=== PATIENT | female | born 1945 | race Caucasian/White ===

== ENCOUNTER 2017-10-05 09:12 | Inpatient (IN) | payer OTHER, MEDICARE ==
[~2017-10-05] VITALS: Ht 160 cm; Wt 99.8 kg
--- NOTE | 2017-10-05 09:36 | ED GI/GU/ABDOMINAL COMPLAINT ---
History of Present Illness General Chief Complaint: Abdominal Pain/Flank Pain Stated Complaint: LOWER ABD PAIN Source: patient Exam Limitations: no limitations Allergies Coded Allergies: Penicillins (ASTHMA 10/05/17) Reconcile Medications Albuterol Sulfate (Proair Hfa) 90 MCG HFA.AER.AD 2 PUF INH AD PRN RESP. ( Reported) Aspirin (Ecotrin*) 81 MG TABLET.DR 1 TAB PO DAILY HEART/BLOOD (Reported) Atorvastatin Calcium 40 MG TABLET 1 TAB PO DAILY CHOLESTEROL (Reported) Cinnamon Bark (Cinnamon) (Unknown Strength) CAPSULE (Unknown Dose) PO DAILY SUPPLEMENT (Reported) Fluticasone/Vilanterol (Breo Ellipta 200-25 Mcg INH) 200 MCG-25 MCG/DOSE BLST.W.DEV 1 PUFF INH DAILY RESP (Reported) Glipizide (Glucotrol XL) 10 MG TAB.ER.24 1 TAB PO DAILY DM (Reported) Losartan (Cozaar) 100 MG TABLET 1 TAB PO DAILY HEART/BP (Reported) Metformin HCl 500 MG TABLET 4 TAB PO DAILY DM (Reported) Montelukast Sodium (Singulair) 10 MG TABLET 1 TAB PO DAILY ALLERGIES/RESP. ( Reported) Multivitamin (Daily Value) 1 EACH TABLET 1 TAB PO DAILY SUPPLEMENT (Reported) Huson-3/Dha/Epa/Fish Oil (Fish Oil 1,000 MG Softgel) (Unknown Strength) CAPSULE (Unknown Dose) PO DAILY SUPPLEMENT (Reported) Pioglitazone HCl (Actos) 30 MG TABLET 1 TAB PO DAILY DM (Reported) Triage Note: PT BIBA C/O LOWER ABD PAIN 8/10 WITH FEVER AND CHILLS SINCE SATURDAY. PT ALSO C/O FREQUESNT URINATION.. PT NAUSEOUS AND VOMITTED IN ROOM ON ARRIVAL. PT CALLED 911 LAST NIGHT BECAUSE SHE WAS LONELY. Triage Nurses Notes Reviewed? yes ? N Is pt currently ? No Onset: Gradual Duration: constant Timing: recent history Quality/Severity: moderate Severity Numbers: 5 Location: suprapubic Radiation: no radiation HPI: Patient is a 72-year-old female with past medical history of ASTHMA, type 2 diabetes, hyperlipidemia, hypertension, diverticulitis with perforation and bowel resection who presents to emergency room with concerns of a four-day history of white productive cough generalized weakness and fatigue increased frequency of urination dysuria suprapubic abdominal pain and intermittent episodes of vomiting, last bowel movement was within last 24 hours no blood no melena no diarrhea patient is able tolerate by mouth prior to arrival Denies any similar sick contacts Denies any chest pain arm pain jaw pain back pain leg swelling Patient was recently placed with clarithromycin and prednisone approximate 3 weeks ago by her primary care doctor for concerns of upper respiratory infection (Kahlil Jason) Vital Signs & Intake/Output Vital Signs & Intake/Output Vital Signs Date Time Temp Pulse Resp B/P B/P Pulse O2 O2 Flow FiO2 Mean Ox Delivery Rate 10/05 1257 99.6 85 18 140/60 95 Room Air 10/05 1154 100.3 84 18 136/64 95 Room Air 10/05 1057 99.9 101 18 146/68 95 Room Air 10/05 1027 102.2 10/05 0950 102.9 10/05 0932 97 10/05 0921 102.9 114 18 181/79 (Kera CONWAY,Domenic Prescott) Past History Travel History Traveled to [place] past 21 day No Medical History Any Pertinent Medical History? see below for history Cardiovascular: hypertension Respiratory: asthma Endocrine: diabetes Surgical History Surgical History: appendectomy, hysterectomy, BOWEL RESECTION Psychosocial History What is your primary language Tuval[place] Tobacco Use: Never used Family History Hx Contributory? No (Kahlil Jason) Review of Systems Review of Systems Constitutional: Reports: see HPI, chills, malaise. EENTM: Reports: no symptoms. Respiratory: Reports: see HPI, cough. Cardiovascular: Reports: no symptoms. GI: Reports: see HPI, abdominal pain. Genitourinary: Reports: see HPI, frequency. Musculoskeletal: Reports: no symptoms. Skin: Reports: no symptoms. Neurological/Psychological: Reports: no symptoms. Hematologic/Endocrine: Reports: no symptoms. Immunologic/Allergic: Reports: no symptoms. All Other Systems: Reviewed and Negative (Kahlil Jason) Physical Exam Physical Exam General Appearance: lethargic, mild distress Head: atraumatic Eyes: Bilateral: normal appearance, PERRL, EOMI. Ears, Nose, Throat, Mouth: hearing grossly normal, moist mucous membrane Neck: normal inspection Respiratory: no respiratory distress, quiet respiration, decreased breath sounds Cardiovascular: tachycardia Peripheral Pulses: 2+ radial (R) Gastrointestinal: normal bowel sounds, soft, SUPRAPUBIC ABDOMINAL PAIN NO REBOUND TENDERNESS Extremities: normal range of motion Neurologic/Psych: no motor/sensory deficits, awake Skin: intact, normal color, warm/dry Core Measures ACS in differential dx? No Sepsis Present: Yes Sepsis Focused Exam Completed? Yes (Kahlil Jason) ED Sepsis Exam Date of Focused Sepsis Exam: 10/05/17 Time of Focused Sepsis Exam: 1108 Sepsis Cardiac Exam: Tachycardia Sepsis Resp Exam: CTA Sepsis Cap Refill Exam: <2 Sec Sepsis Peripheral Pulse Exam: Normal Sepsis Peripheral Pulse Location: Radial Sepsis Skin Color Exam: Normal for Ethnicity Skin Temp/Moisture Exam: Warm/Dry (Kahlil Jason) Progress Differential Diagnosis: AAA, AMI, appendicitis, biliary colic, bowel obstruction , colon cancer, cholecystitis, diverticulitis, endometritis, esophageal varices, gastritis, hepatitis, hernia, hemorrhoids, ischemic bowel, inflamm bowel dis, kidney stone, ovarian cyst, ovarian torsion, pancreatitis, PID/cervicitis, peptic ulcer, PUD/GERD, perforated viscous, SBO, UTI/pyelo Diagnostic Imaging: Viewed by Me: CT Scan. Radiology Impression: see comments Initial ED EKG: normal p-waves, normal QRS complex, 89 BPM,NSR Comments: PATIENT: REEMA GAONA PRESENT AGE: 72 PATIENT ACCOUNT NO: [id number] : 44 LOCATION: [facility] ORDERING PHYSICIAN: Kahlil PRICE SERVICE DATE: 10/05/17 EXAM TYPE: CAT - CT ABD & PELVIS W/O IV CONTRAS; CT CHEST WO IV CONTRAST EXAMINATION: CT CHEST, ABDOMEN, AND PELVIS WITHOUT CONTRAST CLINICAL INFORMATION: Sepsis. Cough. Abdominal pain. COMPARISON: None TECHNIQUE: Multidetector volumetric imaging was performed from the lung apices through the pubic symphysis. Sagittal and coronal reformatted images were obtained on the technologist's workstation. DLP: 957.12 mGy-cm FINDINGS: LUNGS EXAMINATION: CT CHEST, ABDOMEN AND PELVIS WITH CONTRAST CLINICAL INFORMATION: Sepsis, cough, abdominal pain. COMPARISON: No pertinent prior studies are available for comparison. TECHNIQUE: Multidetector volumetric imaging was performed from the thoracic inlet through the pubic symphysis. Sagittal and coronal reformatted images were obtained on the technologist workstation. DLP: 957.12 mGy-cm. FINDINGS: CHEST: Lungs: There are multiple sub-3 mm nodular densities present some of which are calcified. There is a 5 mm noncalcified lesion seen within the right lower lobe on image 266 of 976. There is a 5 mm noncalcified nodule seen within the left lower lobe on image 314 of 976. There are regions of discoid disease seen within the right middle lobe and lingula adjacent to the fissures with some degree of mild bronchiectasis involving the right middle lobe region. These have the appearance of atelectatic change however small focus of pneumonitis within this is not excluded. No confluent pneumonitis is seen. The central airways are unremarkable. Mediastinum: No thoracic aortic aneurysm. There is mild calcified plaque within the aortic arch. There is some calcification of the aortic valve as well as coronary arteries. Heart normal size. No pericardial effusion. No mediastinal or hilar lymphadenopathy. There is a small hiatal hernia. Pleura: There is no significant effusion. No pleural mass or thickening. Chest Wall/Axilla: Unremarkable. No lymphadenopathy appreciated. ABDOMEN/PELVIS: Liver, Gallbladder, Biliary Tree: There is a Amita's lobe present measuring 24 cm in vertical dimension. There is a 1 cm low-density lesion seen within segment 6 of the liver. No intrahepatic bile duct dilatation. The gallbladder is unremarkable with no evidence of radiopaque gallstones, gallbladder wall thickening, or pericholecystic inflammatory changes. Pancreas: Unremarkable. No mass or peripancreatic inflammatory change. Spleen: Unremarkable. Adrenal Glands: Unremarkable. Kidneys and Ureters: Right kidney: No focal mass. There is a 2 mm nonobstructing mid to lower pole calculus. There is question of some fullness of the upper collecting system versus parapelvic cyst. Right ureter unremarkable. Left kidney: There is fullness of the upper collecting system with the appearance of UPJ obstruction. The left ureter appears unremarkable. No calculi or focal mass appreciated. Question parapelvic cysts. There is perinephric stranding present. Bladder: Unremarkable. Gastrointestinal Tract: There is a small hiatal hernia. No dilated loops of large or small bowel are evident. There is diverticulosis of the colon without evidence of acute diverticulitis. The appendix is not visualized. No abnormal fluid collection appreciated. Abdominal Wall: No hernia is demonstrated. Lymph Nodes: No measurable lymphadenopathy. Vascular: Some calcified plaque is seen within the infrarenal abdominal aorta. No abdominal aortic aneurysm. Pelvic Viscera: No abnormal pelvic mass or inflammatory change is seen. Osseous Structures: No destructive bony lesions identified. Degenerative disc disease is seen at the L4-L5 and L5-S1 levels. Degenerative marginal spurring seen multiple levels in the thoracic spine. IMPRESSION: Old granulomatous disease within the chest. 2, 5 mm noncalcified lung lesions . Regions of atelectasis right middle lobe and lingula as described above. Bilateral fullness of renal upper collecting systems without evidence of radiopaque calculi. There may be some parapelvic cyst present. There is left perinephric inflammatory change change seen and question UPJ type obstruction. Ureters appear unremarkable bilaterally. Administration of IV contrast with delayed imaging would help in evaluating for palpable pelvic cyst versus hydronephrosis if there is suspicion of obstructive uropathy. No abscess or abnormal fluid collections are identified. According to the UPDATED 2017 Fleischner Society recommendations, the advised follow-up imaging for solid nodules < 6 mm is: LOW RISK PATIENT: No routine follow-up. HIGH RISK PATIENT: Optional CT at 12 months. (Daria PRICE,Kahlil) Plan of Care: Orders Procedure Date/time Status Add-on Test (ER Only) 10/05 1318 Active LACTIC ACID 10/05 1235 Complete LOWER RESPIRATORY CULTURE 10/05 1041 Active Add-on Test (ER Only) 10/05 1033 Active RAPID VIRAL INFLUENZA A 10/05 0957 Complete CULTURE,URINE 10/05 0941 Active BLOOD CULTURE 10/05 0941 Active Add-on Test (ER Only) 10/05 0940 Active EKG 10/05 0940 Active ACETONE 10/05 0939 Complete URINALYSIS 10/05 0935 Complete TROPONIN LEVEL 10/05 0935 Complete LACTIC ACID 10/05 0935 Complete COMPREHENSIVE METABOLIC PANEL 10/05 0935 Complete CBC WITHOUT DIFFERENTIAL 10/05 0935 Complete Laboratory Tests 10/05/17 1250: Lactic Acid 0.8 10/05/17 1130: Urinalysis LIGHT H, Urine Color YEL, Urine Clarity HAZY H, Urine pH 6.0, Ur Specific [place] 1.020, Urine Protein 100 H, Urine Ketones NEG, Urine Nitrite NEG, Urine Bilirubin NEG, Urine Urobilinogen 0.2, Ur Leukocyte Esterase NEG, Ur Microscopic SEDIMENT EXAMINED, Urine RBC 1-3, Urine WBC 50-75 H, Ur Epithelial Cells MOD H, Urine Bacteria MANY H, Urine Hemoglobin SMALL H, Urine Glucose NEG 10/05/17 0939: Anion Gap 14, Estimated GFR 40 L, BUN/Creatinine Ratio 20.0, Glucose 239 H, Lactic Acid 2.0, Calcium 9.5, Total Bilirubin 0.6, AST 28, ALT 57 H, Alkaline Phosphatase 84, Troponin I 0.02, Total Protein 6.6, Albumin 3.8, Globulin 2.8, Albumin/Globulin Ratio 1.4, CBC w Diff MAN DIFF ORDERED, RBC 3.69 L, MCV 85.6, MCH 28.9, RDW 15.0 H, MPV 8.3, Gran % 84.6 H, Lymphocytes % 5.2 L, Monocytes % 9.8 H, Eosinophils % 0.4, Basophils % 0, Absolute Granulocytes 8.5 H, Segmented Neutrophils 76 H, Band Neutrophils 12 H, Absolute Lymphocytes 0.5 L , Lymphocytes 5 L, Monocytes 7, Absolute Monocytes 1.0 H, Absolute Eosinophils 0, Absolute Basophils 0, Platelet Estimate VERIFIED BY SMEAR, Polychromasia 1+, Anisocytosis 1+, PUBS MCHC 33.8, Acetone Level NEGATIVE Microbiology 10/05 1130 URINE ROUT: Urine Culture - RECD 10/05 1041 LOWER RESP: Respiratory Culture - ORD 10/05 1041 LOWER RESP: Gram Stain - ORD 10/05 1008 BLOOD: Blood Culture - RECD 10/05 1000 BLOOD: Blood Culture - RECD 10/05 0957 NASOPHARYN: Influenza Virus A & B Rapid Smear - COMP Patient on initial examination was noted to be lethargic and febrile IV fluids were administered CT scan was resulted and which due to previous or present illness and exam findings or suspicion of sepsis most likely urine origin IV Rocephin was administered Discussed admission with patient and family members were aware and will agree Discussed admission with Dr. Cote who also was aware No concerns at this time of severe sepsis (Kahlil Jason) (Kera CONWAY,Domenic Prescott) Departure Departure Disposition: STILL A PATIENT Condition: Guarded Clinical Impression Primary Impression: Sepsis Secondary Impressions: Fever, UTI (urinary tract infection) Departure Forms: Customer Survey General Discharge Information Admission Note Spoke With: Phoenix Ojeda MD Documentation of Exam: Documentation of any treatments & extenuating circumstances including Concerns Regarding Discharge (functional status, medication knowledge or non-compliance, living conditions, etc.) that warrant an admission rather than observation: [ Discussed admission with Dr. Ojeda who agrees with admission for concerns of urosepsis in which patient requires IV antibiotics blood culture urine culture currently pending IV fluid resuscitation and repeat labs,] (Kahlil Jason) PA/HUMAN RESOURCES CONSULTANT Co-Sign Statement Statement: ED Attending supervision documentation- [X] I saw and evaluated the patient. I have also reviewed all the pertinent lab results and diagnostic results. I agree with the findings and the plan of care as documented in the PA's/HUMAN RESOURCES CONSULTANT's documentation. Patient presents for evaluation of chills fever and abdominal pain. Physical examination reveals a awake and alert patient with no respiratory distress. Abdomen is nondistended. [] I have reviewed the ED Record and agree with the PA's/HUMAN RESOURCES CONSULTANT's documentation. [] Additions or exceptions (if any) to the PAs/HUMAN RESOURCES CONSULTANT's note and plan are summarized below: [] (Kera CONWAY,Domenic Prescott) Critical Care Note Critical Care Note Critical Care Time: 30-74 min (Kahlil Jason)
[2017-10-05 09:57] LABS: ABSOLUTE BASOPHIL COUNT 0 /CUMM (0.0-0.2); ABSOLUTE EOSINOPHIL COUNT 0 /CUMM (0.0-0.7); ABSOLUTE GRANULOCYTE CT 8.5 /CUMM (1.4-6.5); ABSOLUTE LYMPH COUNT 0.5 /CUMM (1.2-3.4); BASOPHIL % 0 % (0.0-2.0); EOSINOPHIL % 0.4 % (0-5); GRANULOCYTE % 84.6 % (42.2-75.2); HEMATOCRIT 31.6 % (37-47); MEAN CORPUSCULAR HGB 28.9 PG (27.0-31.0); MEAN CORPUSCULAR HGB CONC 33.8 G/DL (33.0-37.0); MEAN CORPUSCULAR VOLUME 85.6 FL (81.0-99.0); MEAN PLATELET VOLUME 8.3 FL (7.4-10.4); PLATELET COUNT 227 /CUMM (130-400); RED BLOOD CELL CT 3.69 /CUMM (4.20-5.40)
--- NOTE | 2017-10-05 12:27 | CT SCAN REPORT ---
EXAMINATION: CT CHEST, ABDOMEN, AND PELVIS WITHOUT CONTRAST CLINICAL INFORMATION: Sepsis. Cough. Abdominal pain. COMPARISON: None TECHNIQUE: Multidetector volumetric imaging was performed from the lung apices through the pubic symphysis. Sagittal and coronal reformatted images were obtained on the technologist's workstation. DLP: 957.12 mGy-cm FINDINGS: LUNGS EXAMINATION: CT CHEST, ABDOMEN AND PELVIS WITH CONTRAST CLINICAL INFORMATION: Sepsis, cough, abdominal pain. COMPARISON: No pertinent prior studies are available for comparison. TECHNIQUE: Multidetector volumetric imaging was performed from the thoracic inlet through the pubic symphysis. Sagittal and coronal reformatted images were obtained on the technologist workstation. DLP: 957.12 mGy-cm. FINDINGS: CHEST: Lungs: There are multiple sub-3 mm nodular densities present some of which are calcified. There is a 5 mm noncalcified lesion seen within the right lower lobe on image 266 of 976. There is a 5 mm noncalcified nodule seen within the left lower lobe on image 314 of 976. There are regions of discoid disease seen within the right middle lobe and lingula adjacent to the fissures with some degree of mild bronchiectasis involving the right middle lobe region. These have the appearance of atelectatic change however small focus of pneumonitis within this is not excluded. No confluent pneumonitis is seen. The central airways are unremarkable. Mediastinum: No thoracic aortic aneurysm. There is mild calcified plaque within the aortic arch. There is some calcification of the aortic valve as well as coronary arteries. Heart normal size. No pericardial effusion. No mediastinal or hilar lymphadenopathy. There is a small hiatal hernia. Pleura: There is no significant effusion. No pleural mass or thickening. Chest Wall/Axilla: Unremarkable. No lymphadenopathy appreciated. ABDOMEN/PELVIS: Liver, Gallbladder, Biliary Tree: There is a Amita's lobe present measuring 24 cm in vertical dimension. There is a 1 cm low-density lesion seen within segment 6 of the liver. No intrahepatic bile duct dilatation. The gallbladder is unremarkable with no evidence of radiopaque gallstones, gallbladder wall thickening, or pericholecystic inflammatory changes. Pancreas: Unremarkable. No mass or peripancreatic inflammatory change. Spleen: Unremarkable. Adrenal Glands: Unremarkable. Kidneys and Ureters: Right kidney: No focal mass. There is a 2 mm nonobstructing mid to lower pole calculus. There is question of some fullness of the upper collecting system versus parapelvic cyst. Right ureter unremarkable. Left kidney: There is fullness of the upper collecting system with the appearance of UPJ obstruction. The left ureter appears unremarkable. No calculi or focal mass appreciated. Question parapelvic cysts. There is perinephric stranding present. Bladder: Unremarkable. Gastrointestinal Tract: There is a small hiatal hernia. No dilated loops of large or small bowel are evident. There is diverticulosis of the colon without evidence of acute diverticulitis. The appendix is not visualized. No abnormal fluid collection appreciated. Abdominal Wall: No hernia is demonstrated. Lymph Nodes: No measurable lymphadenopathy. Vascular: Some calcified plaque is seen within the infrarenal abdominal aorta. No abdominal aortic aneurysm. Pelvic Viscera: No abnormal pelvic mass or inflammatory change is seen. Osseous Structures: No destructive bony lesions identified. Degenerative disc disease is seen at the L4-L5 and L5-S1 levels. Degenerative marginal spurring seen multiple levels in the thoracic spine. IMPRESSION: Old granulomatous disease within the chest. 2, 5 mm noncalcified lung lesions . Regions of atelectasis right middle lobe and lingula as described above. Bilateral fullness of renal upper collecting systems without evidence of radiopaque calculi. There may be some parapelvic cyst present. There is left perinephric inflammatory change change seen and question UPJ type obstruction. Ureters appear unremarkable bilaterally. Administration of IV contrast with delayed imaging would help in evaluating for palpable pelvic cyst versus hydronephrosis if there is suspicion of obstructive uropathy. No abscess or abnormal fluid collections are identified. According to the UPDATED 2017 Fleischner Society recommendations, the advised follow-up imaging for solid nodules < 6 mm is: LOW RISK PATIENT: No routine follow-up. HIGH RISK PATIENT: Optional CT at 12 months.
[2017-10-05] MEDS ORDERED: ACTOS30 M1 PO (13:12)
[2017-10-05] MEDS ORDERED: GLUCOTROL XL10 MG PO (13:13)
[2017-10-05] MEDS ORDERED: COZAAR100 M1 PO (13:13)
[2017-10-05] MEDS ORDERED: ATORVASTATIN CA40 M1 PO (13:13)
[2017-10-05] MEDS ORDERED: BREO ELLIPTA 21 EACH INH (13:13)
[2017-10-05] MEDS ORDERED: METFORMIN HCL500 M3 PO (13:13)
[2017-10-05] MEDS ORDERED: ASPIRIN EC81 M1 PO (13:14)
[2017-10-05] MEDS ORDERED: SINGULAIR10 M1 PO (13:14)
[2017-10-05] MEDS ORDERED: PROAIR HFA8.5 GM INH (13:14)
[2017-10-05] MEDS ORDERED: FISH OIL 1,0001 EAC2 PO (13:15)
[2017-10-05] MEDS ORDERED: DAILY VALUE1 EACH PO (13:15)
[2017-10-05] MEDS ORDERED: CINNAMON500 M1 PO (13:16)
--- NOTE | 2017-10-05 14:17 | History & Physical ---
Jonathan Leal 10/05/17 1417: General Information and HPI MD Statement: I have seen and personally examined REEMA BARRERA and documented this H&P. The patient is a 72 year old F who presented with a patient stated chief complaint of [low abdominal pain, fever, urinary frequency]. Source of Information: patient, old records Exam Limitations: no limitations History of Present Illness: Mrs Barrera is a 72-year-old community dwelling lady with a PMH of DM, HTN, asthma followed by Dr. Kim (PCP) and Dr. Piedra (mental health program manager) who presented with complaints of lower abdominal pain, fevers, chills and urinary frequency. Symptoms started on the evening of 10/02/2017 with sudden onset of chills, 2 episodes of nausea and nonbloody vomitus. Over the next 2-3 days she experienced urinary frequency/urgency, decrease in appetite, intermittent episodes of dry heaving, mild chills, TmAX 101.7, body aches and sweating prompting her to call the EMS to coming for further evaluation. Recent URI symptoms on September 08 for which she was treated with prednisone taper, Flonase and clarithromycin. She denies any sick contacts or recent travel during this time Allergies/Medications Allergies: Coded Allergies: Penicillins (ASTHMA 10/05/17) Home Med list Albuterol Sulfate (Proair Hfa) 90 MCG HFA.AER.AD 2 PUF INH AD PRN RESP. ( Reported) Aspirin (Ecotrin*) 81 MG TABLET.DR 1 TAB PO DAILY HEART/BLOOD (Reported) Atorvastatin Calcium 40 MG TABLET 1 TAB PO DAILY CHOLESTEROL (Reported) Cinnamon Bark (Cinnamon) (Unknown Strength) CAPSULE (Unknown Dose) PO DAILY SUPPLEMENT (Reported) Fluticasone/Vilanterol (Breo Ellipta 200-25 Mcg INH) 200 MCG-25 MCG/DOSE BLST.W.DEV 1 PUFF INH DAILY RESP (Reported) Glipizide (Glucotrol XL) 10 MG TAB.ER.24 1 TAB PO DAILY DM (Reported) Losartan (Cozaar) 100 MG TABLET 1 TAB PO DAILY HEART/BP (Reported) Metformin HCl 500 MG TABLET 4 TAB PO DAILY DM (Reported) Montelukast Sodium (Singulair) 10 MG TABLET 1 TAB PO DAILY ALLERGIES/RESP. ( Reported) Multivitamin (Daily Value) 1 EACH TABLET 1 TAB PO DAILY SUPPLEMENT (Reported) [place]-3/Dha/Epa/Fish Oil (Fish Oil 1,000 MG Softgel) (Unknown Strength) CAPSULE (Unknown Dose) PO DAILY SUPPLEMENT (Reported) Pioglitazone HCl (Actos) 30 MG TABLET 1 TAB PO DAILY DM (Reported) Past History Travel History Traveled to [place] past 21 day No Medical History Cardiovascular: hypertension Respiratory: asthma Endocrine: diabetes Surgical History Surgical History: appendectomy, hysterectomy, BOWEL RESECTION Past Family/Social History Functional Ability ADLs Independent: dressing, eating, toileting, bathing. Ambulation: independent Review of Systems Review of Systems Constitutional: Reports: see HPI. EENTM: Reports: no symptoms. Cardiovascular: Reports: no symptoms. Respiratory: Reports: no symptoms. GI: Reports: see HPI. Genitourinary: Reports: see HPI. Musculoskeletal: Reports: see HPI. Skin: Reports: no symptoms. Neurological/Psychological: Reports: no symptoms. Hematologic/Endocrine: Reports: no symptoms. Exam & Diagnostic Data Last 24 Hrs of Vital Signs/I&O Vital Signs Date Time Temp Pulse Resp B/P B/P Pulse O2 O2 Flow FiO2 Mean Ox Delivery Rate 10/05 1628 98.0 75 18 110/70 95 Room Air 10/05 1540 99.2 72 18 126/69 96 Room Air 10/05 1257 99.6 85 18 140/60 95 Room Air 10/05 1154 100.3 84 18 136/64 95 Room Air 10/05 1057 99.9 101 18 146/68 95 Room Air 10/05 1027 102.2 10/05 0950 102.9 10/05 0932 97 10/05 0921 102.9 114 18 181/79 Intake & Output 10/05 1600 10/05 0800 10/05 0000 Intake Total 1000 Output Total Balance 1000 Intake, IV 1000 Patient 220 lb Weight Weight Reported by Patient Measurement Method Physical Exam General Appearance Alert, Cooperative, No Acute Distress Skin No Significant Lesion Skin Temp/Moisture Exam: Warm/Dry Sepsis Skin Exam (color): Normal for Ethnicity HEENT EOMI, Mucous Membr. moist/pink Lymphatic Cervical nl Cardiovascular Regular Rate, Normal S1, Normal S2 Lungs Clear to Auscultation, Normal Air Movement Abdomen Normal Bowel Sounds, Soft, No Tenderness Neurological Normal Speech, Normal Tone, Sensation Intact Extremities No Edema, Normal Pulses Vascular Pulses Symmetrical Last 24 Hrs of Labs/Thomas: Laboratory Tests 10/05/17 1250: Lactic Acid 0.8 10/05/17 1130: Urinalysis LIGHT H, Urine Color YEL, Urine Clarity HAZY H, Urine pH 6.0, Ur Specific [place] 1.020, Urine Protein 100 H, Urine Ketones NEG, Urine Nitrite NEG, Urine Bilirubin NEG, Urine Urobilinogen 0.2, Ur Leukocyte Esterase NEG, Ur Microscopic SEDIMENT EXAMINED, Urine RBC 1-3, Urine WBC 50-75 H, Ur Epithelial Cells MOD H, Urine Bacteria MANY H, Urine Hemoglobin SMALL H, Urine Glucose NEG 10/05/17 0939: Anion Gap 14, Estimated GFR 40 L, BUN/Creatinine Ratio 20.0, Glucose 239 H, Lactic Acid 2.0, Calcium 9.5, Iron 14 L, TIBC 350, Ferritin 99.4, Total Bilirubin 0.6, AST 28, ALT 57 H, Alkaline Phosphatase 84, Troponin I 0.02, Total Protein 6.6, Albumin 3.8, Globulin 2.8, Albumin/Globulin Ratio 1.4, CBC w Diff MAN DIFF ORDERED, RBC 3.69 L, MCV 85.6, MCH 28.9, RDW 15.0 H, MPV 8.3, Gran % 84.6 H, Lymphocytes % 5.2 L, Monocytes % 9.8 H, Eosinophils % 0.4, Basophils % 0, Absolute Granulocytes 8.5 H, Segmented Neutrophils 76 H, Band Neutrophils 12 H, Absolute Lymphocytes 0.5 L, Lymphocytes 5 L, Monocytes 7, Absolute Monocytes 1.0 H, Absolute Eosinophils 0, Absolute Basophils 0, Platelet Estimate VERIFIED BY SMEAR, Polychromasia 1+, Anisocytosis 1+, PUBS MCHC 33.8, Acetone Level NEGATIVE Microbiology 10/05 1130 URINE ROUT: Urine Culture - RECD 10/05 1041 LOWER RESP: Respiratory Culture - COLB 10/05 1041 LOWER RESP: Gram Stain - COLB 10/05 1008 BLOOD: Blood Culture - RECD 10/05 1000 BLOOD: Blood Culture - RECD 10/05 0957 NASOPHARYN: Influenza Virus A & B Rapid Smear - COMP Diagnostic Data EKG Results Sinus rhythm, HR 89 BPM. VT interval 172. QTC [address] chest abdomen pelvis: Old granulomatous disease with a chest. 5 mm noncalcified lung lesions. Regions of atelectasis right middle lobe and lingula. Bilateral fullness renal upper collecting system, parapelvic cyst present. Left perinephric inflammatory changes and question UPJ type obstruction. Ureters unremarkable bilaterally. No abscess or abnormal fluid collections identified. Assessment/Plan Assessment: 72-year-old with a PMH of DM, HTN, asthma followed by Dr. Kim (PCP) and Dr. Piedra (mental health program manager) who presented with complaints of 3 day duration intermittent chills, few episodes of nausea and nonbloody vomitus, urinary urgency/frequency, decreased appetite, mild chills, TmAX 101.7, body aches and sweating. VS on admission: BP 181/79, HR 114, RR 18, SPO2 97% on RA, T1 102.9 WBC 10.0, 76% segmented neutrophils, 12% bandemia, H&H 10.7/31.6, platelets 227 Bun/CR 26/1.3, glucose 239 Lactic acid: 2.0, 0.8 UA: Hazy, 50-75 WBCs, moderate epithelial cells, many bacteria Problem list: 1. Polynephritis 2. Urosepsis/SIRS criteria: HR 114, temperature 102.9 3. Hypertensive urgency: BP 181/79 4. Elevated creatinine: 1.3 with normal baseline at this time 5. Normocytic anemia Plan: * Full admission to general medicine for workup of pyelonephritis * We'll start patient on ceftriaxone 1 g IV daily * Follow-up blood and urine cultures * Urology consult placed with answering service for findings indicated on CT for questionable UPJ obstruction (Dr Chinchilla) * Hypertensive urgency on admission. Patient received 1 bolus normal saline initially with BP significantly elevated. Will give gentle hydration at 100 mL an hour over the next few hours to avoid worsening HTN. Lactic acid 2.0 trended to 0.8 * Diabetic diet, low dose sliding scale, Accu-Cheks tidac/hs * If worsening renal function, consider alternative to blood pressure control other than losartan * Follow-up iron studies and supplement if low * Incentive spirometry, nebulizer treatments as needed * DVT prophylaxis: heparin 5000 SQ Q8 * FC As Ranked By This Provider Problem List: 1. Pyelonephritis 2. Sepsis 3. Hypertensive urgency Core Measures/Misc (06/16) Acute Coronary Syndrome ACS Diagnosis: No Congestive Heart Failure Congestive Heart Failure Diagnosis No Cerebrovascular Accident CVA/TIA Diagnosis: No VTE (View Protocol) VTE Risk Factors Acute Medical Illness No Mechanical VTE Prophylaxis d/t N/A MechProphylax Ordered No VTE Pharm Prophylaxis d/t NA PharmProphylax ordered Sepsis (View protocol) Sepsis Present: Yes Resident Review Statement Resident Statement: examined this patient, discussed with leadership program intern, agreed with leadership program intern, discussed with family, reviewed EMR data (avail), discussed with nursing , discussed with case mgmt, reviewed images Phoenix Ojeda 10/05/17 1723: Attending MD Review Statement Attending Statement Attending MD Statement: examined this patient, discuss w/resident/PA/SENIOR MEDICAL WRITER, agreed w/resident/PA/SENIOR MEDICAL WRITER, discussed with family, reviewed EMR data (avail), discussed with nursing, discussed with case mgmt, reviewed images, amended to note Attending Assessment/Plan: 72 o/f with pmh of dm, htn , nephrolithiasis comes with fever and increased frequency of urination. Patient had spike of fever 102.2 with tachycardia. Urine shows hazy appaearance with WBC 50-75 and many bacteria. her lactic acid 2.0 initally and trended down to 0.8 with IVF. Patient c/o nausea and denies abdomnial pain. Patient is being admitted for complicated UTI with SIRS and iamging revealing bl fullness of renal upper collecting systems. There is perinephric starnding present. Patient to be started on broad spectrum antiobitoics and send for blood culture, urine culture and taper abx as needed. Consult urology and resume home meds. RISS and titrate insulin as needed. gi/dvt prophyalxis full code. plan of care d/sat patient bedside.
[2017-10-05 16:28] VITALS: BP 110/70
[2017-10-05 22:42] VITALS: BP 136/68
[2017-10-06 06:36] VITALS: BP 120/50
[2017-10-06 09:31] LABS: ABSOLUTE BASOPHIL COUNT 0 /CUMM (0.0-0.2); ABSOLUTE EOSINOPHIL COUNT 0 /CUMM (0.0-0.7); ABSOLUTE GRANULOCYTE CT 10.6 /CUMM (1.4-6.5); ABSOLUTE LYMPH COUNT 0.9 /CUMM (1.2-3.4); ABSOLUTE MONOCYTE COUNT 1.2 /CUMM (0.10-0.60); BASOPHIL % 0 % (0.0-2.0); EOSINOPHIL % 0.1 % (0-5); GRANULOCYTE % 83.2 % (42.2-75.2); HEMATOCRIT 26.8 % (37-47); MEAN CORPUSCULAR HGB 29.7 PG (27.0-31.0); MEAN CORPUSCULAR HGB CONC 34.4 G/DL (33.0-37.0); MEAN CORPUSCULAR VOLUME 86.3 FL (81.0-99.0); MEAN PLATELET VOLUME 8.4 FL (7.4-10.4); PLATELET COUNT 227 /CUMM (130-400); RBC DISTRIBUTION WIDTH 15.4 % (11.5-14.5); WHITE BLOOD CELL COUNT 12.8 /CUMM (4.8-10.8)
--- NOTE | 2017-10-06 09:46 | PN- Housestaff ---
Amol CONWAY,[facility] 10/06/17 0945: Subjective Follow-up For: urosepsis kidney mass lung mass Subjective: No issues overnight. No complaints. Review of Systems Constitutional: Reports: no symptoms. Cardiovascular: Reports: no symptoms. Respiratory: Reports: no symptoms. Gastrointestinal: Reports: no symptoms. Genitourinary: Reports: no symptoms. Musculoskeletal: Reports: no symptoms. Objective Last 24 Hrs of Vital Signs/I&O Vital Signs Date Time Temp Pulse Resp B/P B/P Pulse O2 O2 Flow FiO2 Mean Ox Delivery Rate 10/06 1502 98.4 100 20 120/68 96 10/06 0636 98.2 72 20 120/50 98 Room Air 10/05 2303 Room Air 10/05 2242 97.5 70 22 136/68 96 Room Air Intake & Output 10/06 1600 10/06 0800 10/06 0000 Intake Total 190 1280 780 Output Total Balance 190 1280 780 Intake, IV 800 300 Intake, Oral 190 480 480 Patient 220 lb Weight Weight Reported by Patient Measurement Method Physical Exam General Appearance: Alert, Cooperative, No Acute Distress Skin Temp/Moisture Exam: Warm/Dry Cardiovascular: Regular Rate, Normal S1, Normal S2 Lungs: Clear to Auscultation, Normal Air Movement Abdomen: Normal Bowel Sounds, Soft, No Tenderness Extremities: 2+ radial pulses, no back pain Current Medications: Current Medications Sig/Teo Start time Last Medication Dose Route Stop Time Status Admin Acetaminophen 650 MG Q6P PRN 10/05 1515 AC 10/05 PO 2005 Acetaminophen 1,000 MG Q6P PRN 10/05 1515 IV Albuterol Sulfate 2 PUF Q4-PRN PRN 10/05 2315 AC INH Aspirin Buffered 81 MG DAILY 10/06 1000 AC PO Atorvastatin Calcium 40 MG 1700 10/06 1700 AC 10/06 PO 1735 Ceftriaxone Sodium 1,000 MG DAILY 10/06 1000 AC 10/06 IV 1221 Heparin Sodium 5,000 UNIT Q8 10/05 1507 AC 10/06 (Porcine) SC 211 Insulin Aspart 0 TIDAC 10/05 1700 10/06 SC 1809 Melatonin 5 MG ONCE ONE 10/06 2130 DC 10/06 PO 10/06 2131 2156 Montelukast Sodium 10 MG DAILY 10/06 1000 AC 10/06 PO 1221 Morphine Sulfate 2 MG Q4P PRN 10/05 1515 AC IV Multivitamins 1 TAB DAILY 10/06 1000 AC Therapeutic PO Sodium Chloride 1,000 ML Q13H 10/05 1515 DC 10/06 IV 10/06 1414 0241 Last 24 Hrs of Lab/Thomas Results Last 24 Hrs of Labs/Mics: Laboratory Tests 10/06/17 0755: Anion Gap 10, Estimated GFR 49 L, BUN/Creatinine Ratio 21.8, CBC w Diff MAN DIFF ORDERED, RBC 3.10 L, MCV 86.3, MCH 29.7, RDW 15.4 H, MPV 8.4, Gran % 83.2 H, Lymphocytes % 7.4 L, Monocytes % 9.3, Eosinophils % 0.1, Basophils % 0, Absolute Granulocytes 10.6 H, Segmented Neutrophils 79 H, Band Neutrophils 5, Absolute Lymphocytes 0.9 L, Lymphocytes 8 L, Monocytes 8, Absolute Monocytes 1.2 H, Absolute Eosinophils 0, Absolute Basophils 0, Platelet Estimate VERIFIED BY SMEAR, Polychromasia 1+, Anisocytosis 1+, PUBS MCHC 34.4 Assessment/Plan Assessment: 72-year-old with a PMH of DM, HTN, asthma followed by Dr. Kim (PCP) and Dr. Piedra (digital strategist senior manager) who presented with complaints of 3 day duration intermittent chills, few episodes of nausea and nonbloody vomitus, urinary urgency/frequency, decreased appetite, mild chills, TmAX 101.7, body aches and sweating. #urosepsis T max 102.9 Ucx and 2x BCx positive for gram - rods wbc 10 with 10 bands->12.8 Lactic acid: 2.0, 0.8 CT abd: Bilateral fullness of renal upper collecting systems without evidence of radiopaque calculi. There may be some parapelvic cyst present. There is left perinephric inflammatory change change seen and question UPJ type obstruction. Ureters appear unremarkable bilaterally. -f/u urology ([facility]) outpt -cont ceftriaxone #sob -cont trc nebs #bob Cr 1.3->1.1 -cont to monitor #Hypertensive urgency - resolved Initial BP 181/79 -BP WNL. monitor #Normocytic anemia H/H stable at 06/26 Iron 14, TIBC, ferritin normal -cont to monitor -give iron once renal fxn improves #diabetes Poor management and teaching -diabetic teaching -call endo consult #hld -atorvastain, aspirin DVT prophylaxis: heparin 5000 SQ Q8 FC Problem List: 1. Sepsis 2. UTI (urinary tract infection) Pain Ratin Pain Location: none Pain Goal: Pain 4 or less Pain Plan: pain pathway Tomorrow's Labs & Rationales: cbc bep Phoenix Ojeda 10/06/17 1158: Attending MD Review Statement Attending Statement Attending MD Statement: examined this patient, discuss w/resident/PA/CRAP GAME BOX PERSON, agreed w/resident/PA/CRAP GAME BOX PERSON, discussed with family, reviewed EMR data (avail), discussed with nursing, discussed with case mgmt, reviewed images, amended to note Attending Assessment/Plan: 72 o/f with pmh of dm, htn , nephrolithiasis comes with fever and increased frequency of urination. Patient had spike of fever 102.2 with tachycardia. Urine shows hazy appaearance with WBC 50-75 and many bacteria. her lactic acid 2.0 initally and trended down to 0.8 with IVF. Patient c/o nausea and denies abdomnial pain. patient seen/examined bedside. She denies any new complaints. Overnight stay uneventful. Patient is being admitted for complicated UTI with SIRS and iamging revealing bl fullness of renal upper collecting systems. There is perinephric stranding present. Patient to be started on broad spectrum antiobitoics and f/u blood culture, urine culture and taper abx as needed. Pending urology and resume home meds. RISS and titrate insulin as needed. gi/dvt prophyalxis full code. plan of care d/wed patient bedside.
--- NOTE | 2017-10-06 13:20 | Cons- Urology ---
General Information and HPI Consulting Request Date of Consult: 10/05/17 Requested By: Rusty CONWAY,[place] Reason for Consult: pyelonepritis/ possible UPJ O Source of Information: patient Exam Limitations: no limitations History of Present Illness: As per medicine, "Mrs Barrera is a 72yo female with a PMH of DM, HTN, asthma who presented with complaints of lower abdominal/suprapubicpain, fevers, chills and urinary frequency. Symptoms started on the evening of 10/02/2017 with sudden onset of chills, 2 episodes of nausea and nonbloody vomitus. Over the next 2-3 days she experienced urinary frequency/urgency, decrease in appetite, intermittent episodes of dry heaving, mild chills, TmAX 101.7, body aches and sweating prompting her to call the EMS to coming for further evaluation. Recent URI symptoms on September 08 for which she was treated with prednisone taper, Flonase and clarithromycin. She denies any sick contacts or recent travel during this time." Pt denies any chronic hx of pyelonephritis or kidney stones or UTIs. She does admit to have a kidney infection 4 yrs ago and passed a small stone in 06/16. She otherwise admits to PRABHJOT and UUI with no prolapse symptoms. She has had a hysterectomy at the time of her bowel resection for a perforated diverticulum. She has never been a smoker. No family hx of kidney stones. Allergies/Medications Allergies: Coded Allergies: Penicillins (ASTHMA 10/05/17) Home Med List: Albuterol Sulfate (Proair Hfa) 90 MCG HFA.AER.AD 2 PUF INH AD PRN RESP. ( Reported) Aspirin (Ecotrin*) 81 MG TABLET.DR 1 TAB PO DAILY HEART/BLOOD (Reported) Atorvastatin Calcium 40 MG TABLET 1 TAB PO DAILY CHOLESTEROL (Reported) Cinnamon Bark (Cinnamon) (Unknown Strength) CAPSULE (Unknown Dose) PO DAILY SUPPLEMENT (Reported) Fluticasone/Vilanterol (Breo Ellipta 200-25 Mcg INH) 200 MCG-25 MCG/DOSE BLST.W.DEV 1 PUFF INH DAILY RESP (Reported) Glipizide (Glucotrol XL) 10 MG TAB.ER.24 1 TAB PO DAILY DM (Reported) Losartan (Cozaar) 100 MG TABLET 1 TAB PO DAILY HEART/BP (Reported) Metformin HCl 500 MG TABLET 4 TAB PO DAILY DM (Reported) Montelukast Sodium (Singulair) 10 MG TABLET 1 TAB PO DAILY ALLERGIES/RESP. ( Reported) Multivitamin (Daily Value) 1 EACH TABLET 1 TAB PO DAILY SUPPLEMENT (Reported) [place]-3/Dha/Epa/Fish Oil (Fish Oil 1,000 MG Softgel) (Unknown Strength) CAPSULE (Unknown Dose) PO DAILY SUPPLEMENT (Reported) Pioglitazone HCl (Actos) 30 MG TABLET 1 TAB PO DAILY DM (Reported) Current Medications: Current Medications Sig/Teo Start time Last Medication Dose Route Stop Time Status Admin Acetaminophen 650 MG Q6P PRN 10/05 1515 AC 10/05 PO 2005 Acetaminophen 1,000 MG Q6P PRN 10/05 1515 AC IV Albuterol Sulfate 2 PUF Q4-PRN PRN 10/05 2315 AC INH Aspirin Buffered 81 MG DAILY 10/06 1000 AC PO Atorvastatin Calcium 40 MG 1700 10/06 1700 AC PO Ceftriaxone Sodium 1,000 MG DAILY 10/06 1000 AC IV Ceftriaxone Sodium 0 .STK-MED ONE 10/05 1318 DC .ROUTE Heparin Sodium 0 .STK-MED ONE 10/05 1531 DC (Porcine) .ROUTE Heparin Sodium 5,000 UNIT Q8 10/05 1507 AC 10/06 (Porcine) SC 0640 Insulin Aspart 0 TIDAC 10/05 1700 AC 10/06 SC 0925 Montelukast Sodium 10 MG DAILY 10/06 1000 AC PO Morphine Sulfate 2 MG Q4P PRN 10/05 1515 AC IV Multivitamins 1 TAB DAILY 10/06 1000 AC Therapeutic PO Sodium Chloride 1,000 ML Q13H 10/05 1515 AC 10/06 IV 10/06 1414 0241 Past History Medical History Blood Transfusion Hx: Yes Neurological: NONE EENT: NONE Cardiovascular: hypertension Respiratory: asthma, pneumonia Gastrointestinal: diverticulitis Hepatic: NONE Renal: NONE Musculoskeletal: NONE Psychiatric: NONE Endocrine: diabetes Blood Disorders: NONE Cancer(s): NONE AUTO DAMAGE INSURANCE APPRAISER/Reproductive: fibroid Surgical History Pertinent Surgical History: appendectomy, hysterectomy, BOWEL RESECTION Psychosocial History Where Do You Live? Home Services at Home: None Smoking Status: Never Smoked Functional Ability ADLs Independent: dressing, eating, toileting, bathing. Ambulation: independent Review of Systems Review of Systems Constitutional: Reports: see HPI. EENTM: Reports: no symptoms. Cardiovascular: Reports: no symptoms. Respiratory: Reports: no symptoms. GI: Reports: see HPI. Genitourinary: Reports: frequency, urgency. Musculoskeletal: Reports: see HPI. Skin: Reports: no symptoms. Neurological/Psychological: Reports: no symptoms. Hematologic/Endocrine: Reports: no symptoms. Immunologic/Allergic: Reports: no symptoms. Exam & Diagnostic Data Vital Signs and I&O Vital Signs Date Time Temp Pulse Resp B/P B/P Pulse O2 O2 Flow FiO2 Mean Ox Delivery Rate 10/06 0636 98.2 72 20 120/50 98 Room Air 10/05 2303 Room Air 10/05 2242 97.5 70 22 136/68 96 Room Air 10/05 1628 98.0 75 18 110/70 95 Room Air 10/05 1540 99.2 72 18 126/69 96 Room Air Intake & Output 10/06 1600 10/06 0800 10/06 0000 10/05 1600 10/05 0800 10/05 0000 Intake Total 5846 457 9999 Output Total Balance 8444 582 0902 Intake, IV 767 733 0775 Intake, Oral 480 480 Patient 99.79 kg 99.79 kg Weight Weight Reported by Patient Reported by Patient Measurement Method Physical Exam General Appearance: well developed/nourished, no apparent distress, alert, awake , comfortable Head: atraumatic, normal appearance Eyes: Bilateral: normal appearance. Ears, Nose, Throat: normal ENT inspection Neck: normal inspection Respiratory: normal breath sounds, no respiratory distress Gastrointestinal: soft, non-tender Rectal: deferred Back: normal inspection Extremities: normal inspection, no edema Neurologic/Psych: awake, alert, oriented x 3 Cranial Nerves: normal hearing, normal speech Skin: intact, normal color, warm/dry Last 24 Hours of Labs: Laboratory Tests 10/06 0755 Chemistry Sodium (137 - 145 mmol/L) 138 Potassium (3.5 - 5.1 mmol/L) 3.9 Chloride (98 - 107 mmol/L) 106 Carbon Dioxide (22 - 30 mmol/L) 22 Anion Gap (5 - 16) 10 BUN (7 - 17 mg/dL) 24 H Creatinine (0.5 - 1.0 mg/dL) 1.1 H Estimated GFR (>60 ml/min) 49 L BUN/Creatinine Ratio (7 - 25 %) 21.8 Hematology CBC w Diff MAN DIFF ORDERED WBC (4.8 - 10.8 /CUMM) 12.8 H RBC (4.20 - 5.40 /CUMM) 3.10 L Hgb (12.0 - 16.0 G/DL) 9.2 L Hct (37 - 47 %) 26.8 L MCV (81.0 - 99.0 FL) 86.3 MCH (27.0 - 31.0 PG) 29.7 RDW (11.5 - 14.5 %) 15.4 H Plt Count (130 - 400 /CUMM) 227 MPV (7.4 - 10.4 FL) 8.4 Gran % (42.2 - 75.2 %) 83.2 H Lymphocytes % (20.5 - 51.1 %) 7.4 L Monocytes % (1.7 - 9.3 %) 9.3 Eosinophils % (0 - 5 %) 0.1 Basophils % (0.0 - 2.0 %) 0 Absolute Granulocytes (1.4 - 6.5 /CUMM) 10.6 H Segmented Neutrophils (42.2 - 75.2 %) 79 H Band Neutrophils (0.0 - 5.0 %) 5 Absolute Lymphocytes (1.2 - 3.4 /CUMM) 0.9 L Lymphocytes (20.5 - 51.1 %) 8 L Monocytes (1.7 - 9.3 %) 8 Absolute Monocytes (0.10 - 0.60 /CUMM) 1.2 H Absolute Eosinophils (0.0 - 0.7 /CUMM) 0 Absolute Basophils (0.0 - 0.2 /CUMM) 0 Platelet Estimate (ADEQUATE) VERIFIED BY SMEAR Polychromasia 1+ Anisocytosis 1+ PUBS MCHC (33.0 - 37.0 G/DL) 34.4 Imaging Results: CT scan withtout contrast showed possible left UPJO vs parapelvic cysts which she has on right side as well. No stones other than a 2mm in right LP. Assessment/Plan Assessment/Plan 72yo female with a hx of DM and asthma admitted with pyelonephritis and possible UPJO due to stone vs parapelvic cysts. She is being treated with IV abx and feeling better. Gave recommendations on how to prevent stones. 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 Recommend she FU with me as an outpatient. CT imaging reviewed. No reason for surgical intervention at this time. Thank you for this consult. Consult Acknowledgment - Thank you for your consult request.
[2017-10-06 15:02] VITALS: BP 120/68
[2017-10-06 23:22] VITALS: BP 132/60
[2017-10-07 06:11] VITALS: BP 142/70
--- NOTE | 2017-10-07 08:23 | PN- Housestaff ---
Amol CONWAY,[facility] 10/07/17 0823: Subjective Follow-up For: urosepsis Subjective: No acute events ON. Patient states she had a stressful night because her roommate had too many family members here. No other complaints. Review of Systems Constitutional: Reports: no symptoms. Cardiovascular: Reports: no symptoms. Respiratory: Reports: no symptoms. Gastrointestinal: Reports: no symptoms. Genitourinary: Reports: no symptoms. Neurological/Psychological: Reports: see HPI. Objective Last 24 Hrs of Vital Signs/I&O Vital Signs Date Time Temp Pulse Resp B/P B/P Pulse O2 O2 Flow FiO2 Mean Ox Delivery Rate 10/07 1452 97.9 79 20 118/60 96 10/07 0611 98.3 85 18 142/70 95 Room Air 10/06 2322 99.2 75 22 132/60 93 Intake & Output 10/07 1600 10/07 0800 10/07 0000 Intake Total 180 360 Output Total Balance 180 360 Intake, Oral 180 360 Physical Exam General Appearance: Alert, Oriented X3, Cooperative Skin Temp/Moisture Exam: Warm/Dry Cardiovascular: Normal S1, Normal S2, tachycardia Lungs: Clear to Auscultation, Normal Air Movement Abdomen: Normal Bowel Sounds, Soft, No Tenderness Extremities: 2+ radial pulses Current Medications: Current Medications Sig/Teo Start time Last Medication Dose Route Stop Time Status Admin Acetaminophen 650 MG Q6P PRN 10/05 1515 AC 10/05 PO 2005 Acetaminophen 1,000 MG Q6P PRN 10/05 1515 IV Albuterol Sulfate 2 PUF Q4-PRN PRN 10/05 2315 AC INH Aspirin Buffered 81 MG DAILY 10/06 1000 AC 10/07 PO 0910 Atorvastatin Calcium 40 MG 1700 10/06 1700 AC 10/06 PO 1735 Ceftriaxone Sodium 1,000 MG DAILY 10/06 1000 AC 10/07 IV 0910 Heparin Sodium 5,000 UNIT Q8 10/05 1507 AC 10/07 (Porcine) SC 1448 Insulin Aspart 0 TIDAC 10/05 1700 10/07 SC 1156 Melatonin 5 MG ONCE ONE 10/06 2130 DC 10/06 PO 10/06 2131 2156 Montelukast Sodium 10 MG DAILY 10/06 1000 AC 10/07 PO 0910 Morphine Sulfate 2 MG Q4P PRN 10/05 1515 IV Multivitamins 1 TAB DAILY 10/06 1000 AC 10/07 Therapeutic PO 0910 Last 24 Hrs of Lab/Thomas Results Last 24 Hrs of Labs/Mics: Laboratory Tests 10/07/17 0930: Anion Gap 16, Estimated GFR 49 L, BUN/Creatinine Ratio 20.0, CBC w Diff NO MAN DIFF REQ, RBC 3.34 L, MCV 85.7, MCH 29.5, RDW 15.3 H, MPV 8.4, Gran % 76.4 H, Lymphocytes % 12.7 L, Monocytes % 9.4 H, Eosinophils % 1.5, Basophils % 0, Absolute Granulocytes 8.1 H, Absolute Lymphocytes 1.3, Absolute Monocytes 1.0 H, Absolute Eosinophils 0.2, Absolute Basophils 0, PUBS MCHC 34.4 Microbiology 10/07 1218 LOWER RESP: Respiratory Culture - RES 10/07 1218 LOWER RESP: Gram Stain - RES Assessment/Plan Assessment: 72-year-old with a PMH of DM, HTN, asthma followed by Dr. Kim (PCP) and Dr. Piedra (woodwind instrument repairer) who presented with complaints of 3 day duration intermittent chills, few episodes of nausea and nonbloody vomitus, urinary urgency/frequency, decreased appetite, mild chills, TmAX 101.7, body aches and sweating. #urosepsis T max 102.9 Ucx grow e. coli and 2x BCx positive for gram - rods wbc 10 with 10 bands->10.6 Lactic acid: 2.0, 0.8 CT abd: Bilateral fullness of renal upper collecting systems without evidence of radiopaque calculi. There may be some parapelvic cyst present. There is left perinephric inflammatory change change seen and question UPJ type obstruction. Ureters appear unremarkable bilaterally. -f/u urology ([place]) outpt -cont ceftriaxone #lung lesions Chest CT: Old granulomatous disease within the chest. 2, 5 mm noncalcified lung lesions . Regions of atelectasis right middle lobe and lingula as described above. -f/u outpatient #sob -cont trc nebs #bob Cr 1.3->1.1 -cont to monitor #Hypertensive urgency - resolved Initial BP 181/79 -BP WNL. monitor #Normocytic anemia H/H stable at 9.8/28.6 Iron 14, TIBC, ferritin normal -cont to monitor -give iron once renal fxn improves #diabetes -novolog sliding scale #hld -atorvastain, aspirin DVT prophylaxis: heparin 5000 SQ Q8 FC Problem List: 1. Sepsis 2. UTI (urinary tract infection) Pain Ratin Pain Location: none Pain Goal: Pain 4 or less Pain Plan: pain pathway Tomorrow's Labs & Rationales: cbc bep Phoenix Ojeda 10/07/17 1209: Attending MD Review Statement Attending Statement Attending MD Statement: examined this patient, discuss w/resident/PA/PUBLIC RECORDS OFFICER, agreed w/resident/PA/PUBLIC RECORDS OFFICER, discussed with family, reviewed EMR data (avail), discussed with nursing, discussed with case mgmt, reviewed images, amended to note Attending Assessment/Plan: 72 o/f with pmh of dm, htn , nephrolithiasis comes with fever and increased frequency of urination. Patient had spike of fever 102.2 with tachycardia. Urine shows hazy appaearance with WBC 50-75 and many bacteria. her lactic acid 2.0 initally and trended down to 0.8 with IVF. Patient c/o nausea and denies abdomnial pain. patient seen/examined bedside. She denies any new complaints. Overnight stay uneventful. Patient is having blood culture positive for gram negative rods growing from urine. She has bacteremia. Patient is being admitted for complicated UTI with SIRS and iamging revealing bl fullness of renal upper collecting systems. There is perinephric stranding present. Patient on iv ceftriaxone for bacteremia, urine culture growing gram negative rods and taper abx as needed. No acute intervention as per urology, f/u o/p and resume home meds. RISS and titrate insulin as needed. gi/dvt prophyalxis full code. plan of care d/wed patient bedside.
[2017-10-07 10:33] LABS: ABSOLUTE BASOPHIL COUNT 0 /CUMM (0.0-0.2); ABSOLUTE EOSINOPHIL COUNT 0.2 /CUMM (0.0-0.7); ABSOLUTE GRANULOCYTE CT 8.1 /CUMM (1.4-6.5); ABSOLUTE LYMPH COUNT 1.3 /CUMM (1.2-3.4); BASOPHIL % 0 % (0.0-2.0); EOSINOPHIL % 1.5 % (0-5); GRANULOCYTE % 76.4 % (42.2-75.2); HEMATOCRIT 28.6 % (37-47); MEAN CORPUSCULAR HGB 29.5 PG (27.0-31.0); MEAN CORPUSCULAR HGB CONC 34.4 G/DL (33.0-37.0); MEAN CORPUSCULAR VOLUME 85.7 FL (81.0-99.0); MEAN PLATELET VOLUME 8.4 FL (7.4-10.4); PLATELET COUNT 302 /CUMM (130-400); RBC DISTRIBUTION WIDTH 15.3 % (11.5-14.5); RED BLOOD CELL CT 3.34 /CUMM (4.20-5.40); WHITE BLOOD CELL COUNT 10.6 /CUMM (4.8-10.8)
[2017-10-07 14:52] VITALS: BP 118/60
[2017-10-07 22:21] VITALS: BP 140/70
[2017-10-08 06:40] VITALS: BP 160/76
--- NOTE | 2017-10-08 07:40 | PN- Student ---
Subjective Subjective: 72 yo F hospital day 4 for urosepsis. Patient symptoms started 1/3 with the onset of fever, chills, n/v, urinary frequnecy and urgency. Patient states she is feeling well today, denies MESSER, dizziness, chest pain, dysuria, back pain or abdominal pain. Experiencing minimal dyspnea secondary to her asthma, but states that symptoms are not escalating. Last night there was an episode of nausea and abdominal discomfort but received calcium carbonate (Tums) and the symptoms stopped. At this time patient states she has an appetite, and continue to void spontaneously. Objective Objective: Vital Signs Result Date Time Pulse Ox 94 10/08 639 B/P 160/76 10/08 639 O2 Delivery Room Air 10/08 639 Temp 98.3 10/08 639 Pulse 68 10/08 639 Resp 18 10/08 639 Apperance: Patient is alert and oriented, no acute distress Cardiovascular: regular rate and rhythm, no murmurs, rubs or gallops Pulmonary: Clear to auscultation, no presence of adventitious sounds. Not using accessory muscles of respiration Abdomen: Protuberant abdomen with normoactive bowel sounds, soft to palpation, no rigidity or rebound tenderness Extremities: Calves are warm, no TTP, no edema, 2+ distal pulses in dorsalis pedis and radial artery Intake & Output 10/08 0000 10/07 1600 10/07 0800 Intake Total 800 1510 180 Output Total 900 Balance 800 610 180 Intake, IV 10 Intake, Oral 800 1500 180 Output, Urine 900 Results Results: Laboratory Tests: Waiting for 10/08/2016 CBC, chemistry panel, and sputum culture 10/07/17 0930: Anion Gap 16, Estimated GFR 49 L, BUN/Creatinine Ratio 20.0, CBC w Diff NO MAN DIFF REQ, RBC 3.34 L, MCV 85.7, MCH 29.5, RDW 15.3 H, MPV 8.4, Gran % 76.4 H, Lymphocytes % 12.7 L, Monocytes % 9.4 H, Eosinophils % 1.5, Basophils % 0, Absolute Granulocytes 8.1 H, Absolute Lymphocytes 1.3, Absolute Monocytes 1.0 H, Absolute Eosinophils 0.2, Absolute Basophils 0, PUBS MCHC 34.4 10/06/17 0755: Anion Gap 10, Estimated GFR 49 L, BUN/Creatinine Ratio 21.8, CBC w Diff MAN DIFF ORDERED, RBC 3.10 L, MCV 86.3, MCH 29.7, RDW 15.4 H, MPV 8.4, Gran % 83.2 H, Lymphocytes % 7.4 L, Monocytes % 9.3, Eosinophils % 0.1, Basophils % 0, Absolute Granulocytes 10.6 H, Segmented Neutrophils 79 H, Band Neutrophils 5, Absolute Lymphocytes 0.9 L, Lymphocytes 8 L, Monocytes 8, Absolute Monocytes 1.2 H, Absolute Eosinophils 0, Absolute Basophils 0, Platelet Estimate VERIFIED BY SMEAR, Polychromasia 1+, Anisocytosis 1+, PUBS MCHC 34.4 10/05/17 1250: Lactic Acid 0.8 10/05/17 1130: Urinalysis LIGHT H, Urine Color YEL, Urine Clarity HAZY H, Urine pH 6.0, Ur Specific [place] 1.020, Urine Protein 100 H, Urine Ketones NEG, Urine Nitrite NEG, Urine Bilirubin NEG, Urine Urobilinogen 0.2, Ur Leukocyte Esterase NEG, Ur Microscopic SEDIMENT EXAMINED, Urine RBC 1-3, Urine WBC 50-75 H, Ur Epithelial Cells MOD H, Urine Bacteria MANY H, Urine Hemoglobin SMALL H, Urine Glucose NEG 10/05/17 0939: Anion Gap 14, Estimated GFR 40 L, BUN/Creatinine Ratio 20.0, Glucose 239 H, Lactic Acid 2.0, Calcium 9.5, Iron 14 L, TIBC 350, Ferritin 99.4, Total Bilirubin 0.6, AST 28, ALT 57 H, Alkaline Phosphatase 84, Troponin I 0.02, Total Protein 6.6, Albumin 3.8, Globulin 2.8, Albumin/Globulin Ratio 1.4, CBC w Diff MAN DIFF ORDERED, RBC 3.69 L, MCV 85.6, MCH 28.9, RDW 15.0 H, MPV 8.3, Gran % 84.6 H, Lymphocytes % 5.2 L, Monocytes % 9.8 H, Eosinophils % 0.4, Basophils % 0, Absolute Granulocytes 8.5 H, Segmented Neutrophils 76 H, Band Neutrophils 12 H, Absolute Lymphocytes 0.5 L, Lymphocytes 5 L, Monocytes 7, Absolute Monocytes 1.0 H, Absolute Eosinophils 0, Absolute Basophils 0, Platelet Estimate VERIFIED BY SMEAR, Polychromasia 1+, Anisocytosis 1+, PUBS MCHC 33.8, Acetone Level NEGATIVE Microbiology 10/07 1219 LOWER RESP: Respiratory Culture - RES 10/07 1219 LOWER RESP: Gram Stain - RES 10/05 1130 URINE ROUT: Urine Culture - COMP ESCHERICHIA COLI 10/05 1041 LOWER RESP: Respiratory Culture - CAN Cancelled: SPECIMEN NOT RECEIVED IN LABORATORY 10/05 1041 LOWER RESP: Gram Stain - CAN Cancelled: SPECIMEN NOT RECEIVED IN LABORATORY 10/05 1008 BLOOD: Blood Culture - RES GRAM NEGATIVE RODS 10/05 1000 BLOOD: Blood Culture - RES GRAM NEGATIVE RODS 10/05 0957 NASOPHARYN: Influenza Virus A & B Rapid Smear - COMP Assessment/Plan Assessment: 72 yo F hospital day 4 for urosepsis most likely secondary to ureteropelvic junction obstruction Plan: 1. Continue DVT prophylaxis with Heparin (5000 units subcutaneously) 2. Continue ceftriaxone 1 g IV 3. Await results of CBC, chemistry panel, and sputum culture 4. Continue treatment of chronic conditions (DM2, hyperlipidemia, asthma)
[2017-10-08 08:52] LABS: ABSOLUTE BASOPHIL COUNT 0 /CUMM (0.0-0.2); ABSOLUTE EOSINOPHIL COUNT 0.2 /CUMM (0.0-0.7); ABSOLUTE GRANULOCYTE CT 6.7 /CUMM (1.4-6.5); ABSOLUTE LYMPH COUNT 1.6 /CUMM (1.2-3.4); ABSOLUTE MONOCYTE COUNT 0.9 /CUMM (0.10-0.60); BASOPHIL % 0.3 % (0.0-2.0); EOSINOPHIL % 2.5 % (0-5); GRANULOCYTE % 71.5 % (42.2-75.2); MEAN CORPUSCULAR HGB 29.4 PG (27.0-31.0); MEAN CORPUSCULAR HGB CONC 34.2 G/DL (33.0-37.0); MEAN CORPUSCULAR VOLUME 85.9 FL (81.0-99.0); MEAN PLATELET VOLUME 8.2 FL (7.4-10.4); PLATELET COUNT 318 /CUMM (130-400); RBC DISTRIBUTION WIDTH 15.1 % (11.5-14.5); RED BLOOD CELL CT 3.14 /CUMM (4.20-5.40); WHITE BLOOD CELL COUNT 9.4 /CUMM (4.8-10.8)
--- NOTE | 2017-10-08 11:16 | PN- Housestaff ---
Amol CONWAY,[facility] 10/08/17 1116: Subjective Follow-up For: sepsis of urological origin Subjective: No acute events overnight. Patient states she is doing well. Would like to be discharged today. Review of Systems Constitutional: Reports: no symptoms. Cardiovascular: Reports: no symptoms. Respiratory: Reports: no symptoms. Gastrointestinal: Reports: no symptoms. Genitourinary: Reports: no symptoms. Musculoskeletal: Reports: no symptoms. Skin: Reports: no symptoms. Objective Last 24 Hrs of Vital Signs/I&O Vital Signs Date Time Temp Pulse Resp B/P B/P Pulse O2 O2 Flow FiO2 Mean Ox Delivery Rate 10/08 0640 98.3 68 18 160/76 94 Room Air 10/08 0000 94 Room Air 10/07 2221 98.1 70 20 140/70 96 Room Air Intake & Output 10/08 1600 10/08 0800 10/08 0000 Intake Total 0 800 Output Total Balance 0 800 Intake, IV 0 Intake, Oral 0 800 Number 0 Bowel Movements Physical Exam General Appearance: Alert, Oriented X3, Cooperative Skin Temp/Moisture Exam: Warm/Dry Cardiovascular: Regular Rate, Normal S1, Normal S2 Lungs: diffuse rhonchi Abdomen: Normal Bowel Sounds, Soft, No Tenderness Extremities: 2+ radial pulses Current Medications: Current Medications Sig/Teo Start time Last Medication Dose Route Stop Time Status Admin Acetaminophen 650 MG Q6P PRN 10/05 1515 DCD 10/05 PO 2005 Acetaminophen 1,000 MG Q6P PRN 10/05 1515 DCD IV Albuterol Sulfate 2 PUF Q4-PRN PRN 10/05 2315 DCD INH Aspirin Buffered 81 MG DAILY 10/06 1000 DCD 10/08 PO 1010 Atorvastatin Calcium 40 MG 1700 10/06 1700 DCD 10/07 PO 1707 Calcium Carbonate 500 MG DAILY PRN 10/07 2045 DCD 10/07 PO 2125 Ceftriaxone Sodium 1,000 MG DAILY 10/06 1000 DCD 10/08 IV 1010 Heparin Sodium 5,000 UNIT Q8 10/05 1507 DCD 10/08 (Porcine) SC 0550 Insulin Aspart 0 TIDAC 10/05 1700 DCD 10/08 SC 0813 Montelukast Sodium 10 MG DAILY 10/06 1000 DCD 10/08 PO 1010 Morphine Sulfate 2 MG Q4P PRN 10/05 1515 DCD IV Multivitamins 1 TAB DAILY 10/06 1000 DCD 10/08 Therapeutic PO 1011 Last 24 Hrs of Lab/Thomas Results Last 24 Hrs of Labs/Mics: Laboratory Tests 10/08/17 0735: Anion Gap 13, Estimated GFR 54 L, BUN/Creatinine Ratio 18.0, CBC w Diff NO MAN DIFF REQ, RBC 3.14 L, MCV 85.9, MCH 29.4, RDW 15.1 H, MPV 8.2, Gran % 71.5, Lymphocytes % 16.7 L, Monocytes % 9.0, Eosinophils % 2.5, Basophils % 0.3, Absolute Granulocytes 6.7 H, Absolute Lymphocytes 1.6, Absolute Monocytes 0.9 H, Absolute Eosinophils 0.2, Absolute Basophils 0, PUBS MCHC 34.2 Assessment/Plan Assessment: 72-year-old with a PMH of DM, HTN, asthma followed by Dr. Kim (PCP) and Dr. Piedra (nascar pit crew person) who presented with complaints of 3 day duration intermittent chills, few episodes of nausea and nonbloody vomitus, urinary urgency/frequency, decreased appetite, mild chills, TmAX 101.7, body aches and sweating. #complicated UTI with sepsis of urological origin and imaging revealing bl fullness of renal upper collecting systems T max 102.9 Ucx grow e. coli and 2x BCx positive for E. coli WBC 9.4 (10/08/17) Lactic acid: 2.0, 0.8 CT abd: Bilateral fullness of renal upper collecting systems without evidence of radiopaque calculi. There may be some parapelvic cyst present. There is left perinephric inflammatory change change seen and question UPJ type obstruction. Ureters appear unremarkable bilaterally. -f/u urology ([place]) outpt -Has received ceftriaxone next 4 days. Discharge with ciprofloxacin twice a day X7 days. And lactobacillus. #lung lesions Chest CT: Old granulomatous disease within the chest. 2, 5 mm noncalcified lung lesions . Regions of atelectasis right middle lobe and lingula as described above. -f/u outpatient #Normocytic anemia H/H stable at 9.2/27.0 Iron 14, TIBC, ferritin normal -Discharge with oral iron #sob -cont trc nebs #bob - resolved Cr 1.3->1.1 -> 1.0 -cont to monitor #Hypertensive urgency - resolved Initial BP 181/79 -BP WNL. monitor #diabetes -novolog sliding scale #hld -atorvastain, aspirin DVT prophylaxis: heparin 5000 SQ Q8 FC Problem List: 1. UTI (urinary tract infection) 2. Sepsis 3. Normocytic anemia Pain Ratin Pain Location: none Pain Goal: Pain 4 or less Pain Plan: pain pathway Tomorrow's Labs & Rationales: none Phoenix Ojeda 10/08/17 1156: Attending MD Review Statement Attending Statement Attending MD Statement: examined this patient, discuss w/resident/PA/STICKER ON, agreed w/resident/PA/STICKER ON, discussed with family, reviewed EMR data (avail), discussed with nursing, discussed with case mgmt, reviewed images, amended to note Attending Assessment/Plan: 72 o/f with pmh of dm, htn , nephrolithiasis comes with fever and increased frequency of urination. Patient had spike of fever 102.2 with tachycardia. Urine shows hazy appaearance with WBC 50-75 and many bacteria. her lactic acid 2.0 initally and trended down to 0.8 with IVF. Patient c/o nausea and denies abdomnial pain. patient seen/examined bedside. She denies any new complaints. Overnight stay uneventful. Patient is having blood culture positive for gram negative rods growing from urine. She has bacteremia. Patient is being admitted for complicated UTI with sepsis of urological origin and imaging revealing bl fullness of renal upper collecting systems. There is perinephric stranding present. Patient recieved iv ceftriaxone for bacteremia, urine culture growing gram negative rods and changed abx to Po ciprofloxacin as per c/s. No acute intervention as per urology, f/u o/p and resume home meds. RISS and titrate insulin as needed. Patient can be discharged in stable condiiton. FOLLOW UP PCP in 3-5 days for anemia w/u as outpatient and consider colonsocopy as outpatient. Urology in [address] Chinchilla or her Primary urologist.
[2017-10-08] MEDS ORDERED: AUGMENTIN 500-1 EACH PO (11:31)
--- NOTE | 2017-10-08 11:33 | Patient Discharge Instructions ---
Discharge Instructions General Discharge Information Special Instructions: Please follow up with your pcp in 1-2 weeks. Please follow up regarding this hospitalization, iron defiency anemia, and your imaging findings of your lungs. Please follow up with your urologist Dr. Chinchilla in 1-2 weeks. Please take your medications as perscribed. Acute Coronary Syndrome Inclusion Criteria At DC or during hospital stay patient has or had the following: ACS DIAGNOSIS No Discharge Core Measures Meds if any: Prescribed or Continued at Discharge Meds if any: NOT Prescribed or Continued at Discharge Congestive Heart Failure Inclusion Criteria At DC or during hospital stay patient has or had the following: CHF DIAGNOSIS No Discharge Core Measures Meds if any: Prescribed or Continued at Discharge Meds if any: NOT Prescribed or Continued at Discharge Cerebrovascular accident Inclusion Criteria At DC or during hospital stay patient has or had the following: CVA/TIA Diagnosis No Discharge Core Measures Meds if any: Prescribed or Continued at Discharge Meds if any: NOT Prescribed or Continued at Discharge Venous thromboembolism Inclusion Criteria VTE Diagnosis No VTE Type NONE VTE Confirmed by (Test) NONE Discharge Core Measures - Per Current guidelines, there needs to be overlap - treatment for the first 5 days of Warfarin therapy. - If discharged on Warfarin prior to 5 days of - overlap therapy, the patient will need to be - assessed for post discharge needs including - *Post discharge parental anticoagulation - *Warfarin and/or parental anticoagulation education - *Follow up date to check INR post discharge At least 5 days overlap therapy as Inpatient No Meds if any: Prescribed or Continued at Discharge Note: Overlap Therapy is Warfarin and Anticoagulant Meds if any: NOT Prescribed or Continued at Discharge
[2017-10-08] MEDS ORDERED: CIPRO500 M1 PO (11:51)
[2017-10-08] MEDS ORDERED: ACIDOPHILUS1 EACH PO (11:54)
[2017-10-08] MEDS ORDERED: FERROUS SULFAT325 M3 PO (11:57)
--- NOTE | 2017-10-08 23:40 | Discharge Summary ---
Visit Information Visit Dates Admission Date: 10/05/17 Discharge Date: 10/08/17 Hospital Course Course Attending Physician: Phoenix Ojeda MD Primary Care Physician: Julio CONWAY,Maxim [facility] Hospital Course: 72-year-old with a PMH of DM, HTN, asthma followed by Dr. Kim (PCP) and Dr. Piedra (novelty chain maker) who presented with complaints of 3 day duration intermittent chills, few episodes of nausea and nonbloody vomitus, urinary urgency/frequency, decreased appetite, mild chills, TMAX 101.7, body aches and sweating found to have complicated uti with sepsis or urological origin and CAMERON. #complicated UTI with sepsis of urological origin and imaging revealing bl fullness of renal upper collecting systems T max 102.9 during admissio. Ucx grew mota sensitive E. coli and 2x blood cx positive for E. coli. WBC max 12.8 and was 9.4 upon discharge. Lactic acid was 2.0 initially and downtrended to 0.8. CT abd revealed bilateral fullness of renal upper collecting systems without evidence of radiopaque calculi. There may be some parapelvic cyst present. There is left perinephric inflammatory change change seen and question UPJ type obstruction. Ureters appear unremarkable bilaterally. She was seen by urology ( Dr. Chinchilla) who recommended to surgical intervention at this time. She received ceftriaxone for 4 days. She was discharged with ciprofloxacin BID X7 days and lactobacillus. She was advised to follow up with her PCP and Dr. Chinchilla. #cameron - resolved Initial Cr 1.3 and downtrended 1.0 upon discharge with fluid support. #lung lesions Chest CT revaeled old granulomatous disease within the chest, 2, 5 mm noncalcified lung lesions, and regions of atelectasis right middle lobe and lingula as described above. Advised to follow up outpatient. #Normocytic anemia H/H was stable at 9.2/27.0 during admission. Iron studies revaled low iron with normal TIBC and ferritin. She was discharged with oral iron. #sob She has a history of asthma. Was treated with trc and nebs during admission. #Hypertensive urgency - resolved Initial BP 181/79. We continued her home medications and BP was well controlled during admissioon.r #diabetes Treated with novolog sliding scale and accuchecks. #cardiac health Continued atorvastain for hld and aspirin Allergies: Coded Allergies: Penicillins (ASTHMA 10/05/17) Disposition Summary Disposition Principal Diagnosis: complicated UTI with sepsis of urological origin and imaging revealing bl fullness of renal upper collecting systems Additional Diagnosis: CAMERON Lung lesions Normocytic anemia Discharge Disposition: home or self care Discharge Instructions General Discharge Information Code Status: Full Code Patient's Diet: Diabetic Patient's Activity: As tolerated Follow-Up Instructions/Appts: Please follow up with your pcp in 1-2 weeks. Please follow up regarding this hospitalization, iron defiency anemia, and your imaging findings of your lungs. Please follow up with your urologist Dr. Chinchilla in 1-2 weeks. Please take your medications as perscribed. Medications at Discharge Discharge Medications: Continue taking these medications: Pioglitazone HCl (Actos) 30 MG TABLET 1 Tablet ORAL DAILY Comments: NOT GIVEN IN HOSPITAL Atorvastatin Calcium (Atorvastatin Calcium) 40 MG TABLET 1 Tablet ORAL DAILY Comments: Last Taken:10/07/17 Time:1700 Glipizide (Glucotrol XL) 10 MG TAB.ER.24 1 Tablet ORAL DAILY Comments: not given in hospital Metformin HCl (Metformin HCl) 500 MG TABLET 4 Tablet ORAL DAILY Comments: not given in hospital Fluticasone/Vilanterol (Breo Ellipta 200-25 Mcg INH) 200 MCG-25 MCG/DOSE BLST.W.DEV 1 PUFF Inhale through mouth DAILY Comments: not given in hospital Losartan (Cozaar) 100 MG TABLET 1 Tablet ORAL DAILY Comments: not given in hospital Albuterol Sulfate (Proair Hfa) 90 MCG HFA.AER.AD 2 Puff Inhale through mouth As Directed as needed for RESP. Comments: not given in hospital Montelukast Sodium (Singulair) 10 MG TABLET 1 Tablet ORAL DAILY Comments: Last Taken:10/08/17 Time:10:10AM Aspirin (Ecotrin*) 81 MG TABLET.DR 1 Tablet ORAL DAILY Comments: Last Taken:10/08/17 Time:10:10am [place]-3/Dha/Epa/Fish Oil (Fish Oil 1,000 MG Softgel) (Unknown Strength) CAPSULE Unknown Dose ORAL DAILY Comments: NOT GIVEN IN HOSPITAL Multivitamin (Daily Value) 1 EACH TABLET 1 Tablet ORAL DAILY Comments: Last Taken:10/08/17 Time:10:10AM Cinnamon Bark (Cinnamon) (Unknown Strength) CAPSULE Unknown Dose ORAL DAILY Comments: not given in hospital Start taking the following new medications: Ciprofloxacin HCl (Cipro) 500 MG TABLET 1 Tablet ORAL TWICE DAILY Qty = 14 No Refills Comments: NOT GIVEN IN HOSPITAL Lactobacillus Acidophilus (Acidophilus) 1 EACH CAPSULE 1 Capsule ORAL TWICE DAILY Qty = 30 No Refills Comments: NOT GIVEN IN HOSPITAL Ferrous Sulfate (Ferrous Sulfate) 325 MG (65 MG IRON) TABLET 1 Tablet ORAL DAILY Qty = 30 No Refills Comments: Last Taken:10/08/17 Time:10:10 AM Copies To: Julio CONWAY,Maxim Fraser
== END 2017-10-08 12:37 | DRG 872 ==
LOC: ERH 09:12 → ERHI 13:39 → 2NA 13:39 → ENRESERV 15:19 → ENTRNSPT 15:59 → 2NA 16:19 → CMPTRNSPT 16:27 → ENPENDDIS 10-08 12:12 → ENTRNSPT 10-08 12:23 → 2NA 10-08 12:37 → CMPTRNSPT 10-08 12:45
PROVIDERS: Internal Medicine; Physician Assistant
DX: A41.51 Sepsis due to Escherichia coli [E. coli] (principal); N17.9 Acute kidney failure, unspecified; E11.9 Type 2 diabetes mellitus without complications; D64.9 Anemia, unspecified; N12 Tubulo-interstitial nephritis, not specified as acute or chronic; D50.9 Iron deficiency anemia, unspecified; J45.909 Unspecified asthma, uncomplicated; I16.0 Hypertensive urgency; R91.1 Solitary pulmonary nodule; N39.46 Mixed incontinence
CPT/HCPCS: 2NASP; 36415; 74176; 81001; 82436; 87040; 87070; 87086; 87804; 87804-59; 93005; 93010; 96374; 96375; J0131; J0696; J1644; J2930; J3490